=== PATIENT | female | born 1985 | race Caucasian/White ===

== ENCOUNTER 2021-04-04 09:00 | Outpatient (CLI) | payer OTHER | END 2021-04-04 09:01 | disposition home or self-care (01) | LOC: CSHMAMMO 09:00 | PROVIDERS: ATTEND Nurse Practitioner Adult Health | DX: N63.23 Unspecified lump in the left breast, lower outer quadrant (principal); R92.8 Other abnormal and inconclusive findings on diagnostic imaging of breast; D24.2 Benign neoplasm of left breast | CPT/HCPCS: 77066; G0279 ==